=== PATIENT | male | born 1960 | race Caucasian/White ===

== ENCOUNTER 2016-03-27 14:50 | Day surgery (SDC) | payer OTHER ==
[~2016-03-27] VITALS: Ht 185.4 cm; Wt 77.2 kg
[2016-03-27 16:39] VITALS: Ht 185.4 cm; Wt 77.2 kg
[2016-03-27 16:56] VITALS: BP 127/75; PULSE 72; RESP 16
[2016-03-27] MEDS ORDERED: MIDAZOLAM 1 MG/ML 2 ML INJ ONE ×3 (18:15)
[2016-03-27] MEDS ORDERED: FENTAnyl 50 MCG/ML VIAL ONE ×2 (18:15)
[2016-03-27 18:29] VITALS: BP 140/76; RESP 20
--- NOTE | 2016-03-27 21:19 | GILP ---
DATE OF PROCEDURE: NAME OF PROCEDURE: Colonoscopy and biopsy. SURGEON: Fariha Soto MD PREOPERATIVE DIAGNOSIS: Screening colonoscopy. POSTOPERATIVE DIAGNOSES 1. Colonoscopy all the way to the cecum. 2. Two small right colon polyps were removed using the biopsy forceps. 3. Internal hemorrhoids. INDICATION FOR THE PROCEDURE: Mr. Regan Lyle is a 55-year-old male patient who was scheduled f or screening colonoscopy. The procedure and possible complications were well explained to the patient. He understood and cons ented to the procedure. DESCRIPTION OF PROCEDURE: Under the influence of fentanyl and Versed, the scope was advanced into t he rectum and under direct vision, it was advanced all the way to the cecum. FINDINGS: The patient had 2 small right colon polyps and they were removed using the biopsy forceps . He had internal hemorrhoids. He tolerated the procedure very well and there was no complication from the procedure. At the end o f the procedure, he was awake with stable vital signs and he was discharged home to the care of his family. IMPRESSION: 1. Colonoscopy all the way to the cecum. 2. Two small right colon polyps were removed using the biopsy forceps. 3. Internal hemorrhoids. PLAN: 1. Await histopathology reports. 2. Next screening colonoscopy in 10 years. Dictated By: FARIHA MULTANI/JAVIER Conf#: [id number] DID#: [id number]
== END 2016-03-27 18:49 | disposition home or self-care (01) ==
LOC: GIL 14:50
PROVIDERS: ATTEND Internal Medicine Gastroenterology
DX: Z12.11 Encounter for screening for malignant neoplasm of colon (principal); K63.5 Polyp of colon; K64.8 Other hemorrhoids
CPT/HCPCS: 45380; 88305; J2250; J3010